=== PATIENT | male | born 1965 | race Caucasian/White ===

== ENCOUNTER 2023-09-28 09:45 | Outpatient (AMB) | payer OTHER, SELFPAY ==
--- NOTE | 2023-09-28 09:52 | MHC.OFFVIS ---
Intake Vital Signs 09/28/23 10:00 Height 5 ft 8 in Weight 150 lb BMI 22.8 BP 140/90 H Blood Pressure Location Lt brachial Position Sitting Respiration 16 Pulse 77 Pulse Source Pulse Oximeter Pulse Oximetry (%) 97 Oxygen Delivery Method Room Air Intake Visit Reasons: Lumbar Radiculopathy/lvm Allergies No Known Allergies Allergy (Verified 09/28/23 09:57) HPI HPI Comments History of Present Illness Details Freddy is a very pleasant 58-year-old man who presented to the office today, accompanied by his , for evaluation and management of his chronic lower back pain. Patient reports that he has been suffering with right lower back pain that radiates down the right leg to the foot for approximately 5 years. He states 1 day he coughed, felt a pop, and the pain started. He has previously attempted physical therapy that only exacerbated the pain. He does continue with home exercise program with minimal improvement of his pain. He currently takes nonsteroidal anti-inflammatory medication, muscle relaxers and gabapentin without improvement of his pain. He states initially cyclobenzaprine was helpful for his pain, dose was escalated but he has been on it for approximately 2 years and the effectiveness has worn off. Approximately 3 years ago he was referred to [facility] [place] where he underwent cortisone injections that provided some benefit but he was short lived. The last injection only provided these worth of relief therefore he did not follow-up in their office. Patient endorses right lower extremity weakness, numbness, tingling and burning. Pain today is rated as a 7/10, constant throughout the day. Patient denies red flag symptoms including new loss of bowel, bladder or saddle anesthesia. In terms of muscle damage condition is described as aching, spasming, shooting, dull, shocking, stabbing, sharp, cramping, squeezing, numb, throbbing, tingling, pins and needles. Pain is negatively impacting patient's enjoyment of life, general activity, mood, normal work, recreational activities, relationships with people, sleep and walking. [facility] Social History (Updated 09/28/23 @ 10:27 by Jocelin Kirby) Substance Use Type: Crack/Cocaine and Marijuana Review of Systems Const All systems reviewed & are unremarkable except as noted in HPI and below Physical Exam Vital Signs: Last Vital Signs Pulse 77 09/28/23 10:00 Resp 16 12/08/23 10:00 BP 140/90 H 09/28/23 10:00 Pulse Ox 97 09/28/23 10:00 Oxygen Delivery Method Room Air 09/28/23 10:00 BMI result Body Mass Index 22.8 General: awake, alert, oriented. Answers questions appropriately. Fully engaged in examination. Skin: warm, dry, intact HEENT: Normocephalic. Hearing intact. Cardiac: External chest normal in appearance. Respiratory: No cough, audible wheezing or stridor. Abdomen: without gross distension. MS: No obvious swelling or deformities. Able to stand on bilateral tiptoes and bilateral heels.? Able to transition from sit to stand unassisted. Ambulates with bilaterally normal heel strike and toe off SLR positive Right Robbie positive Right ROM intact Tenderness to palpation over midline lumbar vertebrae and lumbar paraspinal muscles Neurological: Oriented to person, place, time and situation. Thought process intact. No gait abnormalities appreciated. Psychiatric: Appropriate mood and affect. Good judgment and insight. Results Reviewed Results Reviewed: 07/23/2023 MRI LS w/o Contrast Assessment & Plan Assessment & Plan (1) Lumbar radiculopathy: Code(s): M54.16 - Radiculopathy, lumbar region (2) Lumbar spondylosis: Code(s): M47.816 - Spondylosis without myelopathy or radiculopathy, lumbar region (3) Neuropathy: Code(s): G62.9 - Polyneuropathy, unspecified Plan Freddy presents to the office today for evaluation and management of his chronic right lower back pain. History, physical exam and provocative testing consistent with right lumbar radiculopathy. Patient has exhausted conservative therapy including physical therapy, home exercise program, nonsteroidal anti-inflammatory medication, muscle relaxers and gabapentin. He has previously tried cortisone injection to his lower back with very brief improvement in his symptoms. Discussed options for treatment including diagnostic interventional testing, epidural steroid injections, peripheral nerve stimulation with Sprint, RFA and more permanent neuromodulation. Tens unit ordered, instruction pamphlet provided. Baclofen 10mg po BID as needed. Cautions for use discussed with patient, hold cyclobenzaprine while taking this medication. EMG ordered for evaluation of RLE numbness/weakness. Will schedule for fluoroscopy guided right L4/L5 Transforaminal Epidural Steroid injection with local anesthetic. [facility] and have [facility] a copy [facility] images on Disk for review. If patient does not find relief with injection will refer to neurosurgery for evaluation. All questions and concerns have been answered and patient agrees with the plan. Follow up after injections and sooner if needed. Orders: Orders NE electromyogram (EMG) Today G62.9 - Polyneuropathy, unspecified Medications: New baclofen Do not take with other muscle relaxants. Discontinue Cyclobenzaprine while taking this medication. 10 mg PO BID PRN 60 tabs 0RF muscle spasm Coding Level of Care Code New Pt Level 4 (21554) Diagnoses Lumbar radiculopathy M54.16 Lumbar spondylosis M47.816 Neuropathy G62.9
[2023-09-28 10:00] VITALS: BP 140/90; PULSE 77; RESP 16; O2SAT 97; BMI 22.8
== END 2023-09-28 10:43 | disposition home or self-care (01) ==
PROVIDERS: Visit Provider Registered Nurse Emergency
DX: M54.16 Radiculopathy, lumbar region (principal); M47.816 Spondylosis without myelopathy or radiculopathy, lumbar region; G62.9 Polyneuropathy, unspecified
CPT/HCPCS: 99204

== ENCOUNTER → 2023-09-28 09:45 | Outpatient (BNVA) | payer OTHER, SELFPAY | PROVIDERS: Visit Provider Registered Nurse Emergency | DX: M54.16 Radiculopathy, lumbar region (principal); M47.816 Spondylosis without myelopathy or radiculopathy, lumbar region; G62.9 Polyneuropathy, unspecified | CPT/HCPCS: 99202 ==